=== PATIENT | male | born 1965 | race Caucasian/White ===

== ENCOUNTER 2019-02-05 07:56 | Outpatient (RCR) | payer OTHER, SELFPAY ==
[2019-02-05 08:01] VITALS: BMI 35.0
== END 2019-05-06 23:59 | disposition home or self-care (01) ==
LOC: ANHDMC 07:56
PROVIDERS: PCP Internal Medicine; Visit Provider Internal Medicine
DX: E11.9 Type 2 diabetes mellitus without complications (principal); Z71.3 Dietary counseling and surveillance
CPT/HCPCS: 97803

== ENCOUNTER 2022-05-30 00:19 | Day surgery (SDC) | payer OTHER, SELFPAY ==
[2022-05-13 14:01] VITALS: BMI 35.4
[2022-05-30 06:40] VITALS: BP 134/79; PULSE 79; RESP 18; TEMP 36.4; O2SAT 100; BMI 34.9
[2022-05-30] MEDS: LACTATED RINGERS 1,000 ML 150 ML IV CONT (07:03)
[2022-05-30 07:05] LABS: Glucose Point of Care 107 mg/dl (65-105)
--- NOTE | 2022-05-30 07:28 | PM.HPGS ---
History of Present Illness History of Present Illness Consent: Risks, benefits, and alternatives have been discussed and questions answered. Patient agrees to proceed with procedure. Chief complaint: neoplasm screening Narrative: Tio Mendez is a 56 year old male Presents for screening colonoscopy. Patient's current weight appetite and bowel movements are normal. Patient denies abdominal pain. He has had no bleeding. Family history is significant for an uncle who had colon cancer. Patient reports no first-degree relatives have polyps or cancer. Patient presents today for screening colonoscopy. Review of Systems Review of Systems: Review of systems noncontributory. [facility] Social History Social History (System 07/02/19 @ 08:55 by Lorna Yun) Living arrangements: with family Spiritual care concerns: No Meds Home Medications and Allergies Home Medications Medication Instructions Recorded Confirmed Type aspirin 81 mg capsule 81 mg PO DAILY 05/13/22 05/30/22 History felodipine 10 mg tablet,extended 10 mg PO DAILY 05/13/22 05/30/22 History release 24 hr rosuvastatin 20 mg tablet 20 mg PO DAILY 05/13/22 05/30/22 History semaglutide 14 mg tablet (Rybelsus) 14 mg PO DAILY 05/13/22 05/30/22 History telmisartan 80 1 tablet PO DAILY 05/13/22 05/30/22 History mg-hydrochlorothiazide 25 mg tablet Allergies Allergy/AdvReac Type Severity Reaction Status Date / Time No Known Allergies Allergy Verified 05/30/22 06:50 Vital Signs Vital Signs - 24 hr 05/30/22 06:40 Temperature 97.6 F Pulse Rate 79 Respiratory Rate 18 Blood Pressure 134/79 Pulse Oximetry 100 Oxygen Delivery Room Air Exam Narrative: Physical exam reveals patient to be alert. Vital signs stable. HEENT exam is unremarkable. Patient is anicteric. Lungs are clear to auscultation and percussion. Heart is without murmur or extra sounds. Abdomen bowel sounds are present soft nontender with no organomegaly. Digital external rectal exam is normal. Assessment and Plan Assessment and plan (1) Encounter for screening colonoscopy: Code(s): Z12.11 - Encounter for screening for malignant neoplasm of colon Status: Acute Assessment and Plan: Patient presents today for screening colonoscopy. Further recommendations may be given after endoscopy.
--- NOTE | 2022-05-30 07:31 | P.PNAN_ITS ---
Anes - Initial Pre Proc Eval Procedure: Operation Date: 05/30/22 08:00 Proposed Procedures p Screening Colonoscopy - Beni Nevarez MD Date/Time: 05/30/22 07:31 Surgeon: Beni Nevarez MD Pre Op Diagnosis: neoplasm screening Patient Data Age: 56 Gender: M Height: 1.75 m Weight: 107.4 kg Last Vital Signs Temp 97.6 F 05/30/22 06:40 Pulse 79 05/30/22 06:40 Resp 18 05/30/22 06:40 BP 134/79 05/30/22 06:40 Pulse Ox 100 05/30/22 06:40 O2 Del Method Room Air 05/30/22 06:40 Allergies Allergy/AdvReac Type Severity Reaction Status Date / Time No Known Allergies Allergy Verified 05/30/22 06:50 Home Medications Medication Instructions Recorded Confirmed Type aspirin 81 mg capsule 81 mg PO DAILY 05/13/22 05/30/22 History felodipine 10 mg tablet,extended 10 mg PO DAILY 05/13/22 05/30/22 History release 24 hr rosuvastatin 20 mg tablet 20 mg PO DAILY 05/13/22 05/30/22 History semaglutide 14 mg tablet (Rybelsus) 14 mg PO DAILY 05/13/22 05/30/22 History telmisartan 80 1 tablet PO DAILY 05/13/22 05/30/22 History mg-hydrochlorothiazide 25 mg tablet Laboratory Tests 05/30/22 06:57 POC Capillary Glucose 107 mg/dl H mg/dl (65-105) Patient hx anesthesia problems: none Family hx anesthesia problems: none Results Review: All pre-operative results and documents have been reviewed as part of the pre- operative evaluation. [facility] Social History Social History (System 07/02/19 @ 08:55 by Lorna Yun) Living arrangements: with family Spiritual care concerns: No Anes - Eval Final PreProcedure Day of Procedure 05/30/22 07:31 Patient weight: obese Heart: regular rate and rhythm Lungs: clear to auscultation Airway: Mallampati scale class II Neurological: alert and oriented Last oral intake: >/= 8 hours ASA classification: III Emergent: no Anesthetic plan: proceed Anesthesia type and monitoring: general GIVS and standard monitoring Results Review: All pre-operative results and documents have been reviewed as part of the pre- operative evaluation. Informed Consent: The patient's anesthetic plan and its attendant risks and benefits were discusse d with the patient/family/POA. Questions were solicited and answers provided to the satisfaction of the patient/family/POA.
[2022-05-30] MEDS: SIMETHICONE ORAL SUSPENSION 20 MG/0.3 ML 30 ML BOTTLE 0.6 ML IRRIGATION (08:08)
[2022-05-30 08:17] VITALS: BP 94/62; PULSE 74; RESP 20; O2SAT 96
[2022-05-30 08:27] VITALS: BP 92/63; PULSE 72; RESP 20; O2SAT 97
[2022-05-30 08:37] VITALS: BP 109/74; PULSE 70; RESP 22; O2SAT 98
== END 2022-05-30 08:43 | disposition home or self-care (01) ==
PROVIDERS: PCP Internal Medicine; Visit Provider Internal Medicine Gastroenterology
PROC: 0DJD8ZZ Inspection of Lower Intestinal Tract, Via Natural or Artificial Opening Endoscopic (ICD-10-PCS; CPT 45378; principal; 2022-05-30 08:00)
DX: Z12.11 Encounter for screening for malignant neoplasm of colon (principal); Z79.82 Long term (current) use of aspirin; E66.9 Obesity, unspecified; Z68.35 Body mass index [BMI] 35.0-35.9, adult
CPT/HCPCS: 45378; 82948; J2704; J7120

== ENCOUNTER 2024-03-13 09:26 | Emergency (ER) | payer BC, SELFPAY ==
--- NOTE | ~2024-03-13 | XR_ITS ---
EXAMINATION: XR chest 1V portable DATE: 03/13/2024 09:52 INDICATION: Chest pain. TECHNIQUE: A single frontal view of the chest was obtained. COMPARISON: None. FINDINGS: There is no pneumonia, pleural effusion, or pneumothorax. The heart size is normal. IMPRESSION: 1. No acute cardiopulmonary disease. Reviewed, dictated and finalized at location B. TED PHYSICAL EDUCATION AIDE
[2024-03-13 09:26] VITALS: PULSE 84
[2024-03-13 09:28] VITALS: BP 164/117; PULSE 86; RESP 20; TEMP 36.6; O2SAT 100
--- NOTE | 2024-03-13 09:35 | ED.CHESTPAIN ---
HPI - Chest Pain General Chief Complaint: Chest Pain Stated Complaint: chest pain Time Seen by Provider: 03/13/24 09:33 Source: patient and family Mode of arrival: ambulatory Limitations: no limitations History of Present Illness HPI narrative: 58-year-old male with a history of Anxiety,hypertension, prediabetes, dyslipidemia presents to the ED with a 7 hour history of -- anterior chest pain/ upper substernal chest pain which woke him up from his sleep. The pain was noted to be 2/10. The pain radiated to his right arm. He had nausea with vomiting. No shortness of breath or lightheadedness. Currently the pain is noted to be 1/10. No prior history of CAD. No prior stress test or cardiac catheterization. Two weeks ago yet a history of dizziness which lasted for a day with spontaneous resolution. MD complaint: chest pain Onset (ago): hour(s) ( 7 hours ago) Timing of current episode: constant Prior episodes: No Onset: during rest and awoke with symptoms Pain location: substernal Pain radiation: right arm Severity: mild Pain scale (0-10): 1 Quality: aching Relieving factors: nothing Exacerbating factors: nothing Associated symptoms: nausea and vomiting Treatment prior to arrival: none Risk Factors Coronary artery disease risk factors: hyperlipidemia and hypertension Thoracic aortic dissection risk factors: none Related Data Home Medications ?Medication ?Instructions ?Recorded ?Confirmed ?Last Taken ?Type aspirin 81 mg capsule 81 mg PO DAILY 05/13/22 05/30/22 03/13/24 History felodipine 10 mg tablet,extended 10 mg PO DAILY 05/13/22 05/30/22 Unknown History release 24 hr rosuvastatin 20 mg tablet 20 mg PO DAILY 05/13/22 05/30/22 Unknown History telmisartan 80 1 tablet PO DAILY 05/13/22 05/30/22 Unknown History mg-hydrochlorothiazide 25 mg tablet Allergies Allergy/AdvReac Type Severity Reaction Status Date / Time No Known Allergies Allergy Verified 03/13/24 09:31 Review of Systems Review of Systems: All systems reviewed & are unremarkable except as noted in HPI and below Constitutional: Constitutional: Reports as per HPI and Reports no additional constitutional complaints Eyes: Eyes: Reports as per HPI and Reports no additional eye complaints ENT: Reports system reviewed and no additional complaints, except as documented and Reports as per HPI Cardiovascular: Cardiovascular: Reports as per HPI and Reports chest pain Respiratory: Respiratory: Reports as per HPI and Reports no additional respiratory complaints Gastrointestinal: Gastrointestinal: Reports as per HPI and Reports no additional gastrointestinal complaints Genitourinary: Genitourinary: Reports no additional male genitourinary complaints and Reports as per HPI Musculoskeletal: Musculoskeletal: Reports no additional musculoskeletal complaints and Reports as per HPI Integumentary/Breasts: Skin/Breast: Reports system reviewed and no additional complaints, except as docu and Reports as per HPI Neurologic: Reports system reviewed and no additional complaints, except as documented and Reports as per HPI Psychiatric: Psychiatric: Reports no additional psychiatric complaints and Reports as per HPI Endocrine: Endocrine: Reports no additional endocrine complaints and Reports as per HPI Hematologic/Lymphatic: Hematologic/Lymphatic: Reports no additional hematologic/lymphatic complaints and Reports as per HPI Allergic/Immunologic: Allergic/Immunologic: Reports no additional allergic/immunologic complaints and Reports as per HPI PMFSH Past Medical History Medical History Anxiety Pre-diabetes Dyslipidemia Hypertension Social History Social History Living arrangements: with family Spiritual care concerns: No Exam Narrative: blood pressure 164/117 heart rate of 84 Const: General: no acute distress Nutritional Appearance: well nourished Orientation/consciousness: patient oriented x3 Limitations: no limitations HENMT: Head: normal to inspection Ears: external ears normal Face/Nose/Sinus: Normal external nose present Face and sinus: normal facial exam Mouth: Yes Normal oral and palatal mucosa present Throat: posterior oropharynx normal Eyes: Conjunctivae: conjunctivae normal Pupils: Equal, round and reactive pupils present EOM: EOMs intact bilaterally Direct Ophthalmoscopy: no photophobia Neck: Neck: normal visual inspection, no lymphadenopathy and no meningeal signs Chest: Chest palpation & inspection: normal inspection of the chest Resp: Effort & Inspection: normal respiratory effort Auscultation: clear to auscultation bilaterally Cardio: Rate: regular rate Rhythm: regular rhythm GI: Auscultation: normal bowel sounds Other: no tenderness/rigidity / rebound. : General: Yes no CVA tenderness Back/Spine/Pelvis: Back: no CVA tenderness Skin: General skin exam: normal color Rashes: no rashes Wounds: no wounds Neuro: General: patient oriented x3, moves all extremities, no meningeal signs, no focal motor deficits and CN's II-XI intact bilaterally Cranial nerves: Yes Nystagmus not present Speech: normal speech Extrem: General: normal to inspection and no clubbing, cyanosis or edema Psych: Mental Status: mental status grossly normal Affect: normal affect Attitude: cooperative Course Course Emergency Course: Anterior chest pain- EKG suggestive of inferolateral STEMI patient received aspirin, heparin and 25 mg of metoprolol p.o.. Discussed with wheel alignment mechanic who will give the 2nd antiplatelet when he gets to [facility] Vital Signs Vital signs: Vital Signs Pulse Rate 84 03/13/24 09:26 Oxygen Delivery Room Air 03/13/24 09:26 Temperature 36.6 C 03/13/24 09:28 Pulse Rate 90 03/13/24 09:53 Respiratory Rate 20 03/13/24 09:28 Blood Pressure 164/117 H 03/13/24 09:28 Pulse Oximetry 100 03/13/24 09:28 Oxygen Delivery Room Air 03/13/24 09:28 MDM - Chest Pain MDM Narrative Medical decision making narrative: inferolateral STEMI Lab Data 03/13/24 09:42 03/13/24 09:42 Labs: Lab Results 03/13/24 Range/Units 09:42 WBC 9.3 (4.8-10.8) K/mm3 RBC 6.03 (4.70-6.10) M/mm3 Hgb 17.2 (14.0-18.0) g/dL Hct 50.3 (40.0-54.0) % MCV 83.4 (78.0-102.0) fL MCH 28.5 (27.0-31.0) pg MCHC 34.2 (32-36) g/dL RDW 11.9 (11.6-14.4) % Plt Count 188 (150-420) K/mm3 MPV 10.4 (8.7-11.0) fl Immature Gran % (Auto) 0.3 H (0.0-0.0) % Neut % (Auto) 86.3 H (50.0-70.0) % Lymph % (Auto) 10.0 L (18.0-42.0) % [place] % (Auto) 2.9 (2.0-11.0) % Eos % (Auto) 0.2 L (1.0-6.0) % Baso % (Auto) 0.3 (0.0-1.0) % Lymph # (Auto) 0.93 L (1.10-4.50) K/mm3 [place] # (Auto) 0.27 (0.10-0.90) K/mm3 Eos # (Auto) 0.02 (0.02-0.50) K/mm3 Baso # (Auto) 0.03 (0.00-0.10) K/mm3 Abs Immat Gran (auto) 0.03 H (0.00-0.00) K/mm3 Absolute Neuts (auto) 7.99 H (1.70-7.20) K/mm3 Absolute Nucleated RBC 0.00 (0.00-0.00) K/mm3 Nucleated RBC % 0.0 (0-0.0) % PT Pending INR Pending APTT Pending Sodium Pending Potassium Pending Chloride Pending Carbon Dioxide Pending Anion Gap Pending BUN Pending Creatinine Pending Estim Creat Clear Calc Pending Estimated GFR Pending Glucose Pending Calculated Osmolality Pending Lactic Acid Pending Calcium Pending Total Bilirubin Pending AST Pending ALT Pending Alkaline Phosphatase Pending Troponin I Pending NT-Pro-B Natriuret Pep Pending Total Protein Pending Albumin Pending Critical Care Time Critical Care Time Critical Care Time: Yes Total Critical Care Time: 35 Discharge Plan Discharge Clinical Impression: Acute ST elevation myocardial infarction (STEMI) of inferior wall Patient Disposition: Still a Patient Condition: Stable Patient Language: British Prescriptions: No Action felodipine 10 mg Tablet Extended Release 24 Hr 10 mg PO DAILY rosuvastatin 20 mg Tablet 20 mg PO DAILY telmisartan-hydrochlorothiazid 80-25 mg tablet 1 tablet PO DAILY aspirin 81 mg Capsule 81 mg PO DAILY Follow-up/Referrals: Ben Law MD [Primary Care Provider] - Time of Disposition: 09:57
--- NOTE | 2024-03-13 09:36 | ECG_ITS ---
Test Date: 2024-03-13 09:38:15 Measurements Intervals [place] Rate: 78 P: 42 IA: 159 QRS: 66 QRSD: 100 T: 60 QT: 386 QTc: 442 Interpretive Statements SINUS RHYTHM INFERIOR MYOCARDIAL INFARCTION , POSSIBLY ACUTE [40+ ms Q WAVE AND/OR ST/T ABNORMALITY IN II/aVF] ACUTE [place] No previous ECG available for comparison Electronically Signed On 03-14-2024 12:34:31 BEDSPREAD INSPECTOR by Val Sparks M.D.
[2024-03-13 09:40] VITALS: BP 179/113; PULSE 84; RESP 20; O2SAT 99
[2024-03-13 09:51] LABS: Basophils Absolute Auto 0.03 K/mm3 (0.00-0.10); Basophils Percent Auto 0.3 % (0.0-1.0); Eosinophils Absolute Auto 0.02 K/mm3 (0.02-0.50); Eosinophils Percent Auto 0.2 % (1.0-6.0); Hematocrit 50.3 % (40.0-54.0); Hemoglobin 17.2 g/dL (14.0-18.0); Immature Granulocyte Absolute 0.03 K/mm3 (0.00-0.00); Immature Granulocyte Percent A 0.3 % (0.0-0.0); Lymphocytes Absolute Auto 0.93 K/mm3 (1.10-4.50); Mean Corpuscular HGB Conc 34.2 g/dL (32-36); Mean Corpuscular Hemoglobin 28.5 pg (27.0-31.0); Mean Corpuscular Volume 83.4 fL (78.0-102.0); Mean Platelet Volume 10.4 fl (8.7-11.0); Monocytes Absolute Auto 0.27 K/mm3 (0.10-0.90); Monocytes Percent Auto 2.9 % (2.0-11.0); Neutrophils Absolute Auto 7.99 K/mm3 (1.70-7.20); Neutrophils Percent Auto 86.3 % (50.0-70.0); Platelet Count Result 188 K/mm3 (150-420); Red Blood Count 6.03 M/mm3 (4.70-6.10); Red Cell Distribution Width 11.9 % (11.6-14.4); White Blood Count 9.3 K/mm3 (4.8-10.8)
[2024-03-13] MEDS: ASPIRIN 81 MG CHEWABLE TABLET 324 MG PO (09:52)
[2024-03-13 09:53] VITALS: PULSE 90
[2024-03-13] MEDS: METOPROLOL TARTRATE 25 MG TABLET PO (09:53)
[2024-03-13] MEDS: HEPARIN SOD/D5W 100 UNITS/ML 25,000 UNITS/250 ML BAG 13.58 UNITS IV CONT (09:54)
[2024-03-13 10:00] VITALS: BP 167/105; PULSE 87; RESP 20; O2SAT 99
[2024-03-13 10:04] LABS: INR 0.9; Partial Thromboplastin Time 24.8 Sec (23.9-30.70); Prothrombin Time 10.3 Seconds (9.50-12.1)
[2024-03-13 10:08] LABS: Lactic Acid Reflex 2.7 mmol/L (0.4-2.0)
[2024-03-13] MEDS: HEPARIN SODIUM 5,000 UNITS/ML VIAL 5000 UNITS IV PUSH (10:10)
[2024-03-13 10:13] LABS: Alanine Aminotransferase 44 U/L (16-63); Albumin Level 4.4 g/dL (3.4-5.0); Alkaline Phosphatase 67 U/L (46-116); Anion Gap 11 mmol/L (4-12); Aspartate Amino Transferase 20 U/L (15-37); Bilirubin,Total 0.8 mg/dL (0.00-1.00); Blood Urea Nitrogen 14 mg/dL (7-18); Calcium 9.4 mg/dL (8.5-10.1); Carbon Dioxide 29 mmol/L (21-32); Chloride 99 mmol/L (98-108); Estimated CRCL calculation 81 ml/min; Estimated Glomerular Filt Rate > 60; Glucose 195 mg/dL (70-99); NT Pro B Type Natriuretic Pept 144 pg/mL (0-125); Osmolality Calculated 293 mOsm/kg (285-295); Potassium 3.8 mmol/L (3.5-5.1); Sodium 139 mmol/L (136-145); Total Protein 7.8 g/dL (6.4-8.2)
[2024-03-13 10:15] LABS: Troponin I 886.2 ng/L (0.00-60.4)
[2024-03-13 12:47] LABS: Reflex Lactic Acid Yes or No Add Lactic
--- OUTSIDE RECORDS SUMMARY | 2024-03-14 22:26 | XMS_ITS | Clinical Summary ---
Author Organization [facility] Address [address] [place] [address]. [place], [place] [id number] [place] [id number] Care Team Providers Care Model Technician Name Role Phone None, Provider MD Primary Care Provider Unavaila ble Allergies No known active allergies Medications lisinopril-hydro chlorothiazide 20-25 MG tablet Take 1 tablet by mouth daily. 30 tablet 09/08/2018 Active Family History Medical History Relation Comments Heart Disease Father Hypertension Mother Relation Status Comments Father Mother Social History Tobacco Use Types Packs/Day Years Used Date Smoking Tobacco: Never Smokeless Tobacco: Never Alcohol Use Standard Drinks/Week Comments Yes 3.3 (1 standard drin k = 0.6 oz pure alcohol) drinks a couple times a month Sex and Gender Information Value Date Recorded Sex Assigned at Not on file Legal Sex Male 12:02 PM CDT Gender Identity Not on file Sexual Orientation Not on file Last Filed Vital Signs Vital Sign Reading Time Taken Comments Blood Pressure 222/126 09/08/2018 2:02 PM CDT Pulse 82 09/08/2018 2:02 PM CDT Temperature 36.2 ??C (97.2 ??F) 09/08/2018 12:03 PM C DT Respiratory Rate 20 09/08/2018 2:02 PM CDT Oxygen Saturation 99% 09/08/2018 2:02 PM CDT Inhaled Oxygen Concentration - - Weight 117.9 kg (260 lb) 09/08/2018 12:03 PM CDT Height 175.3 cm (5' 9 ) 09/08/2018 12:03 PM CDT Body Mass Index 38.4 09/08/2018 12:03 PM CDT Plan of Treatment Health Maintenance Due Date Last Done Comments Colorectal Cancer Screening Colonoscopy (10 Years) 1967 Annual Physical 08/13/1970 Hepatitis C 08/13/1985 DTaP, Tdap and Td Vaccines ( 1 - Tdap) 08/13/1986 Hepatitis B Vaccines (1 of 3 - 19+ 3-dose series) 08/13/1986 Zoster Vaccines (1 of 2) 08/13/2017 COVID-19 Vaccine (1 - 2023-2 5 season) 2023 Influenza Adult (#1) 2023 Meningococcal Vaccine Aged Out No carina brandan eligible based on patient's age to complete this topic Pneumococcal Vaccine: Pediat rics (0 to 5 Years) and At-Risk Patients (6 to 64 Years) Aged Out No longer eligible b ased on patient's age to complete this topic RSV Immunizations Under 20 Months Aged Out No longer eligible based on patient's age to complete this topic Insurance Care Teams Model Technician Relationship Specialty Start Date End Date None, Provider, PCP - General 09/08/18
--- OUTSIDE RECORDS SUMMARY | 2024-03-14 22:47 | XMS_ITS | Clinical Summary ---
Author Organization [facility] Address [address] [place] [address]. [place], [place] [id number] [place] [id number] Care Team Providers Care Paint Laboratory Technician Name Role Phone None, Provider MD [...] to complete this topic Insurance Care Teams Paint Laboratory Technician Relationship Specialty Start Date End Date None, Provider, PCP - General 09/08/18
== END 2024-03-13 10:13 | disposition short-term general hospital (02) ==
PROVIDERS: Emergency Provider Internal Medicine Critical Care Medicine; PCP Internal Medicine
DX: I21.19 ST elevation (STEMI) myocardial infarction involving other coronary artery of inferior wall (principal); I10 Essential (primary) hypertension
CPT/HCPCS: 36415; 71045; 80053; 83605; 83880; 84484; 85025; 85610; 85730; 93005; 96365; 99291; A9270; J1644

== ENCOUNTER 2024-03-13 10:23 | Inpatient (IN) | payer BC, SELFPAY ==
[2024-03-13] VITALS (10 sets, daily range): BP systolic 133–155; BP diastolic 89–99; PULSE 59–67; RESP 12–16; TEMP 36.5–36.9; O2SAT 98–99; BMI 36.4
[2024-03-13 11:55] LABS: Activated Clotting Time 107 SEC (74-137)
--- NOTE | 2024-03-13 12:17 | P.CONCA_ITS ---
Assessment and Plan Assessment and plan (1) Acute ST elevation myocardial infarction (STEMI) of inferior wall: Code(s): I21.19 - ST elevation (STEMI) myocardial infarction involving other coronary artery of inferior wall Status: Acute (2) Hypertension: Code(s): I10 - Essential (primary) hypertension Status: Acute Plan Inferior STEMI Hypertension Hyperlipidemia Prediabetes Family history of significant CAD Plan: Continue aspirin 81 mg daily Continue statin Start metoprolol 25 mg b.i.d. Hold telmisartan, hydrochlorothiazide for now Continue felodipine Transfer current for CT surgery consult and CABG History of Present Illness History of Present Illness Consult date/time: 03/13/24 12:17 Reason For Visit: chest pain Narrative: 58-year-old male with medical history of hypertension, hyperlipidemia, prediabetes, family history of CAD was transferred from an outside hospital for inferior STEMI. He presented to the outside hospital with chest pain that started at 2:30 a.m. in the morning. This was associated with nausea and 1 emesis. The pain was of intensity 2 x 10 and located in his mid chest without any radiation. Given his family history of significant CAD, patient presented to an outside hospital ER. Chest pain was off and on and was resolved in the outside hospital ER after administration of aspirin and heparin. Troponin was elevated. EKG there showed ST elevation in inferior leads. Patient was transferred to [facility] for emergent cardiac catheterization. Patient had cardiac catheterization which showed significant triple-vessel disease including 90% stenosis of distal RCA, LETTER OF CREDIT DOCUMENT EXAMINER of RPDA with [id number] collateral, 60% stenosis of proximal LAD, 90% stenosis of mid LAD, diffusely diseased mid to distal LAD, 50% stenosis of proximal left circumflex, 70% stenosis of OM (see cath report for full details of cardiac catheterization). Given patient did not have ongoing chest pain, stable blood pressure, electrically stable decision was made to transfer him for CABG. No chest pain, shortness of breath, dizziness, lightheadedness, palpitations, leg swelling, recent weight gain, nausea, emesis, headache. Review of Systems Review of Systems: A complete review of systems was performed and negative other than those mentioned in [facility] Past Medical History Medical History Anxiety Pre-diabetes Dyslipidemia Hypertension Social History Social History Living arrangements: with family Spiritual care concerns: No Meds Home Medications and Allergies Home Medications ?Medication ?Instructions ?Recorded ?Confirmed ?Type aspirin 81 mg capsule 81 mg PO DAILY 05/13/22 05/30/22 History felodipine 10 mg tablet,extended 10 mg PO DAILY 05/13/22 05/30/22 History release 24 hr rosuvastatin 20 mg tablet 20 mg PO DAILY 05/13/22 05/30/22 History telmisartan 80 1 tablet PO DAILY 05/13/22 05/30/22 History mg-hydrochlorothiazide 25 mg tablet Allergies Allergy/AdvReac Type Severity Reaction Status Date / Time No Known Allergies Allergy Verified 03/13/24 09:31 Exam Narrative: General: Alert oriented x3, no acute distress Neck: Supple, JVD + Chest: Bilaterally clear to auscultation, no rales or rhonchi Cardiac: S1, S2 +, regular rate, regular rhythm, no murmurs or rubs Extremities: No pedal edema, no skin rash Neurologic: Alert and oriented x3, no focal neurological deficits
--- NOTE | 2024-03-13 12:26 | PC.NURSE ---
This patient, Tio Mendez, was admitted to [facility] ICU-1. Patient/family oriented to hospital policies and general routines including ID bracelet, bed and alarms, visiting hours, pain management, procedures, bathroom and other care routines, personal items, smoking policy, room service/diet, and visiting hours. Information on how to activate the Rapid Response Team has been discussed. Patient/Family are encouraged to report perceived risks to care and to ask questions if they do not understand what they are told or what they should do.
--- NOTE | 2024-03-13 12:30 | P.CONIN_ITS ---
Assessment and Plan Assessment and plan (1) Acute ST elevation myocardial infarction (STEMI) of inferior wall: Code(s): I21.19 - ST elevation (STEMI) myocardial infarction involving other coronary artery of inferior wall Status: Acute Assessment and Plan: Transferred from [facility] with EKG findings suggestive of STEMI in the patient with all the risk factors and chest pain. At [place] Patient had cardiac catheterization which showed significant triple-vessel disease including 90% stenosis of distal RCA, PRODUCT MERCHANDISER of RPDA with [id number] collateral, 60% stenosis of proximal LAD, 90% stenosis of mid LAD, diffusely diseased mid to distal LAD, 50% stenosis of proximal left circumflex, 70% stenosis of OM (see cath report for full details of cardiac catheterization). Patient is now going to be transferred to [facility] for CABG Currently he is chest pain-free and hemodynamically stable Continue hemodynamic monitoring in ICU telemetry monitoring Aspirin statin beta-mary Patient was started on heparin drip as per Cardiology orders (2) Hypertension: Code(s): I10 - Essential (primary) hypertension Status: Acute Assessment and Plan: Blood pressure is in control at this time. Holding telmisartan and hydrochlorothiazide at this time. Continue felodipine head and start metoprolol (3) Dyslipidemia: Code(s): E78.5 - Hyperlipidemia, unspecified Status: Acute Assessment and Plan: Continue rosuvastatin (4) Pre-diabetes: Code(s): R73.03 - Prediabetes Status: Acute Assessment and Plan: Sliding scale insulin, check HbA1c Plan DVT prophylaxis -patient will be on heparin infusion Nutrition -diet ordered Code Status - Full Code Maintenance Technician 3Rd Shift Consult Note Consult date: 03/13/24 Reason for consult: STEMI HPI: Tio Mendez is a 58 year old male with past medical history of prediabetes but not on any treatment, hypertension and hyperlipidemia presented to ED [place] [facility] with chief complaint of chest pain. Chest pain started around 2:00 a.m. while he was sleeping. Pain was dull in quality he rated at 1-2 L out of 10 and radiated to his right arm. He had nausea and had 1-2 episodes of vomiting with no blood in it. No shortness of breath or diaphoresis. His pain persisted and did not get better hence his forced him to come to the hospital. He has not had similar chest pain in the past. He states he can walk many miles without any difficulty. Prior to this episode he was feeling good with no other complaints. All other systems were reviewed and were negative EKG today ER suggestive STEMI and patient was transferred to [facility] for evaluation patient underwent cardiac catheterization which showed multivessel coronary disease. His chest pain had resolved and he was hemodynamically stable. No intervention was performed and patient is being admitted to ICU. Patient will be transferred to [facility] for evaluation for CABG. Most recent blood pressure is 130/91 heart rate is 63 sinus rhythm saturation 97% on room air Review of Systems Review of Systems: All systems reviewed & are unremarkable except as noted in HPI and below (HPI) [facility] Past Medical History Medical History (Updated 03/13/24 @ 12:39 by Jonathan Barrera MD) Anxiety Pre-diabetes Dyslipidemia Hypertension Social History Social History Smoking status: Never smoker Alcohol intake: never Substance use type: does not use Do You Feel Safe in your Home?: Yes Lack of Transportation: No Lack of Food: Never True Current Housing: I Have Housing Concerned About Future Housing: No Difficulty Paying Gas/Electric Bills: No Difficulty Paying for Meds: No Currently Unemployed: No Education: Decline to Answer Difficulty w/ Childcare or Family Care: No Living arrangements: with family Spiritual care concerns: No Meds Home Medications and Allergies Home Medications ?Medication ?Instructions ?Recorded ?Confirmed ?Type aspirin 81 mg capsule 81 mg PO DAILY 05/13/22 03/13/24 History felodipine 10 mg tablet,extended 10 mg PO DAILY 05/13/22 03/13/24 History release 24 hr rosuvastatin 20 mg tablet 20 mg PO DAILY 05/13/22 03/13/24 History telmisartan 80 1 tablet PO DAILY 05/13/22 03/13/24 History mg-hydrochlorothiazide 25 mg tablet Allergies Allergy/AdvReac Type Severity Reaction Status Date / Time No Known Allergies Allergy Verified 03/13/24 09:31 Exam Narrative: General: Pt is alert awake and in NAD Lungs/Chest: Trachea central Clear BS B/L, No crackles or wheezing. Cardiac: RRR. Normal S1 S2. No murmurs Circulation: Bilateral dorsalis pedis Pedal pulses are intact and symmetrical. Abdomen: Normal bowel sounds.. Soft. NT. ND. Extremities: No clubbing, cyanosis or edema. Warm TR band on right wrist right hand shows good cap refill with no tenderness : Ibanez in place Neurologic: Follows commands. Moves all 4 extremities PERRL Skin: No Rash Quality VTE Prophylaxis VTE prophylaxis: pharmacologic ordered Hospitalist [facility] Advance Care Plan I have confirmed that the patient's Advanced Care Plan is present, code status is documented, or surrogate decision maker is listed in patient medical record.: Yes Medication Reconciliation I have utilized all available resources to obtain, update and review the patients current medications (includes all prescriptions, OTC, herbals, cannabis, and nutritional supplements).: Yes
[2024-03-13] MEDS: SODIUM CHLORIDE 0.9% IV 1,000 ML 125 ML IV CONT (12:39)
--- NOTE | 2024-03-13 12:48 | WPDCARDPROC ---
Cardiac Cath Procedure Note Date of procedure:: 03/13/24 Performing physician:: Jessica Castillo MD Indication:: Inferior STEMI Brief clinical history:: 58-year-old male with medical history of hypertension, hyperlipidemia, prediabetes presented with chest pain that started at 2:30 a.m. for which he presented to an outside hospital ER at EKG there showed inferior ST elevation with an elevated troponin. Patient was transferred to [facility] for emergent cardiac catheterization. Procedure Procedure performed:: Left heart catheterization Sedation/Medication given:: 1.5 mg Versed 150 mcg fentanyl Sedation start time 12:47 p.m. Sedation end time 13:21 Access site:: Right radial artery The right common femoral artery Estimated blood loss:: 10 mL Procedure note:: Patient was brought to the cardiac director of cardiac cath lab for angiogram and possible intervention. The risks, benefits, alternatives, and possible complications of this procedure was discussed, understood and accepted by the patient. Moderate sedation: I administered moderate sedation throughout the procedure. An independent trained provider pushed medications at my direction and monitored the patient's level of consciousness and physiological status throughout under my supervision. [id number] time was provided for the entire procedure. Please refer to electronic medical record for total sedation doses provided. Intra-service time: 34 minutes. Procedures performed 1. Radial artery access, right common femoral artery access 2. Left heart catheterization 3. Selective left and right coronary angiogram Hemodynamic data: Opening aortic pressure: 140/90 Closing aortic pressure: 138/80 LVEDP 9 mm Procedure technique: After informed consent was obtained, the patient was brought to the cardiac director of cardiac cath lab and was placed in the supine position. Access site was prepped and draped in usual sterile manner. Right radial access was obtained using modified Seldinger technique. Six Ecuadorean sheath was inserted. Radial cocktail was administered. We started 1st with coronary angiography. Selective left coronary angiography was performed in a standard fashion using diagnostic JL 3.5 catheter. Later a JR4 guide catheter was used to engage the right coronary artery but due to horizontal orientation of the aorta the RCA could not be engaged from the radial access. After multiple attempts at radial access was abandoned and decision was made to proceed to right common femoral artery access. The skin was infiltrated with 1% lidocaine for local anesthesia. After confirming the location of the inferior border of the femoral head using fluoroscopy, arterial access was obtained using modified Seldinger technique with a micropuncture needle under direct ultrasound guidance. Angiography through the micropuncture sheath confirmed adequate level of access that was also suitable for closure if warranted. The micropuncture sheath was then exchanged for a 6 Ecuadorean sheath which was inserted into the right common femoral artery. Selective coronary angiography was performed using JR4 guide catheter to engage the right coronary artery. The JR4 guide catheter was used to cross the aortic valve over a J-wire and obtain LVEDP and pullback pressures. The guide catheter was then removed from the body. Right common femoral artery access site was closed using 6 Ecuadorean Angio-Seal. Radial artery access site was closed using TR band. Patient tolerated the procedure well without any complications. Catheters used for selective coronary angiograms: Six Ecuadorean JL 3.5 Six Ecuadorean JR4 guide Findings:: 1. The left main coronary artery arises from the left coronary cusp and divides into the left anterior descending and left circumflex. It is free of angiographic disease. 2. The left anterior descending artery arises from the left main and gives off multiple diagonals. The proximal LAD has 60-70% stenosis. The mid LAD has 290% serial stenosis. The distal LAD is diffusely diseased. The 2nd diagonal is large with 60% stenosis in its body. 3. The left circumflex artery arises from the left main and is a non dominant artery. The proximal left circumflex has 60% stenosis, mid left circumflex has 70% stenosis. There are 2 large OM branches. OM1 has 70% stenosis in its body and OM2 has 70% stenosis in its body. 4. RCA is a large vessel and dominant. Distal RCA has 90% stenosis. The RPDA is a VENTURE CAPITAL ANALYST with [id number] collaterals. There is 70% stenosis in the proximal portion of the RPLA. Conclusion:: Inferior STEMI status post emergent cardiac catheterization; catheterization showed severe obstructive triple-vessel CAD Assessment and Plan Assessment and plan (1) Acute ST elevation myocardial infarction (STEMI) of inferior wall: Code(s): I21.19 - ST elevation (STEMI) myocardial infarction involving other coronary artery of inferior wall Status: Acute (2) Hypertension: Code(s): I10 - Essential (primary) hypertension Status: Acute (3) Dyslipidemia: Code(s): E78.5 - Hyperlipidemia, unspecified Status: Acute Plan Inferior STEMI Hypertension Hyperlipidemia Prediabetes Family history of significant CAD Plan: Continue aspirin 81 mg daily Continue statin Start metoprolol 25 mg b.i.d. Hold telmisartan, hydrochlorothiazide for now Continue felodipine Transfer current for CT surgery consult and CABG
--- NOTE | 2024-03-13 13:10 | P.PCNCC_ITS ---
Cardiac Cath Procedure Note Date of procedure:: 03/13/24 Performing physician:: Jessica Castillo MD Indication:: Inferior STEMI Brief clinical history:: 58-year-old male with medical history of hypertension, hyperlipidemia, prediabetes presented with chest pain that started at 2:30 a.m. for which he presented to an outside hospital ER at EKG there showed inferior ST elevation with an elevated troponin. Patient was transferred to [facility] for emergent cardiac catheterization. Procedure Procedure performed:: Left heart catheterization Sedation/Medication given:: 1 mg Versed 200 mcg fentanyl Sedation start time 11:04am Sedation end time 11:48am Heparin 5000 units Access site:: Right radial artery The right common femoral artery Estimated blood loss:: 10 mL Procedure note:: Patient was brought to the cardiac bottle label inspector for angiogram and possible intervention. The risks, benefits, alternatives, and possible complications of this procedure was discussed, understood and accepted by the patient. Moderate sedation: I administered moderate sedation throughout the procedure. An independent trained provider pushed medications at my direction and monitored the patient's level of consciousness and physiological status throughout under my supervision. [id number]-[id number] time was provided for the entire procedure. Please refer to electronic medical record for total sedation doses provided. Intra-service time: 34 minutes. Procedures performed 1. Radial artery access, right common femoral artery access 2. Left heart catheterization 3. Selective left and right coronary angiogram Hemodynamic data: Opening aortic pressure: 140/90 Closing aortic pressure: 138/80 LVEDP 9 mm Procedure technique: After informed consent was obtained, the patient was brought to the cardiac bottle label inspector and was placed in the supine position. Access site was prepped and draped in usual sterile manner. Right radial access was obtained using modified Seldinger technique. Six Brazilian sheath was inserted. Radial cocktail was administered. We started 1st with coronary angiography. Selective left coronary angiography was performed in a standard fashion using diagnostic JL 3.5 catheter. Later a JR4 guide catheter was used to engage the right coronary artery but due to horizontal orientation of the aorta the RCA could not be engaged from the radial access. After multiple attempts at radial access was abandoned and decision was made to proceed to right common femoral artery access. The skin was infiltrated with 1% lidocaine for local anesthesia. After confirming the location of the inferior border of the femoral head using fluoroscopy, arterial access was obtained using modified Seldinger technique with a micropuncture needle under direct ultrasound guidance. Angiography through the micropuncture sheath confirmed adequate level of access that was also suitable for closure if warranted. The micropuncture sheath was then exchanged for a 6 Brazilian sheath which was inserted into the right common femoral artery. Selective coronary angiography was performed using JR4 guide catheter to engage the right coronary artery. The JR4 guide catheter was used to cross the aortic valve over a J-wire and obtain LVEDP and pullback pressures. The guide catheter was then removed from the body. Right common femoral artery access site was closed using 6 Brazilian Angio-Seal. Radial artery access site was closed using TR band. Patient tolerated the procedure well without any complications. Catheters used for selective coronary angiograms: Six Brazilian JL 3.5 Six Brazilian JR4 guide Findings:: 1. The left main coronary artery arises from the left coronary cusp and divides into the left anterior descending and left circumflex. It is free of angiographic disease. 2. The left anterior descending artery arises from the left main and gives off multiple diagonals. The proximal LAD has 60-70% stenosis. The mid LAD has 290% serial stenosis. The distal LAD is diffusely diseased. The 2nd diagonal is large with 60% stenosis in its body. 3. The left circumflex artery arises from the left main and is a non dominant artery. The proximal left circumflex has 60% stenosis, mid left circumflex has 70% stenosis. There are 2 large OM branches. OM1 has 70% stenosis in its body and OM2 has 70% stenosis in its body. 4. RCA is a large vessel and dominant. Distal RCA has 90% stenosis. The RPDA is a PACKING AND FINAL ASSEMBLY SUPERVISOR with cjhq-sm-wfoch collaterals. There is 70% stenosis in the proximal portion of the RPLA. Conclusion:: Inferior STEMI status post emergent cardiac catheterization; catheterization showed severe obstructive triple-vessel CAD
[2024-03-13 13:30] LABS: Hemoglobin A1C 6.7 % (<5.7)
[2024-03-13 13:52] LABS: MRSA (PCR) NOT DETECTED (NOT DETECTE)
[2024-03-13] MEDS: ROSUVASTATIN 20 MG TABLET PO (16:21)
--- NOTE | 2024-03-13 16:33 | PC.NURSE ---
Ambulance here to transport to [facility]. Report given. All questions answered.
--- NOTE | 2024-03-15 08:47 | PM.TDS ---
Transfer Discharge Sum: Prov Provider Date of admission: 03/13/24 10:23 Primary care physician: Ben Law MD Admitting clinician: Jessica Castillo MD Consults: 03/13/24 Consult to Physician Routine Comment: Consulting Provider: Jonathan Barrera Reason for consultation: ICU admission Has provider been notified: Yes Receiving physician/facility: Jessica Castillo DS: Admitting Diagnosis Discharge Date 03/13/24 Admitting Diagnosis Inferior STEMI DS: Discharge Diagnosis Discharge Diagnosis (1) NSTEMI (non-ST elevated myocardial infarction): Code(s): I21.4 - Non-ST elevation (NSTEMI) myocardial infarction Status: Acute Transfer Discharge Sum: Med Medications Active and Home Medications: Home Medications aspirin 81 mg capsule 81 mg PO DAILY 05/13/22 [History Confirmed 03/13/24] felodipine 10 mg tablet,extended release 24 hr 10 mg PO DAILY 05/13/22 [History Confirmed 03/13/24] rosuvastatin 20 mg tablet 20 mg PO DAILY 05/13/22 [History Confirmed 03/13/24] telmisartan 80 mg-hydrochlorothiazide 25 mg tablet 1 tablet PO DAILY 05/13/22 [History Confirmed 03/13/24] Transfer Discharge Sum: Hosp Hospital Course Hospital course: Tio Mendez is a 58 year old male with history of hypertension, dyslipidemia, prediabetes, anxiety, family history of coronary artery disease who presented with chest pain that started at 2 in the morning on the day of presentation. He went to an outside hospital where he had an EKG that showed inferior STEMI and as he was transferred to [facility] for emergent cardiac catheterization. Cardiac catheterization at [facility] showed obstructive triple-vessel CAD for which CABG was recommended. The culprit vessel was distal RCA with 90% stenosis. PCI was not performed given patient did not have chest pain, was hemodynamically and electrically stable, there was STEPHANI 3 flow beyond the lesion in distal RCA, and patient had obstructive triple-vessel disease which would benefit from CABG. Patient was agreeable with this plan and he was transferred to another facility for CT surgery consult and CABG. Patient tolerated the procedure well without any complications. He was on aspirin, statin, heparin drip. Second antiplatelet agent was not administered in lieu of CABG evaluation. Time Spent with Patient Time attestation: Total time spent providing and/or coordinating transfer services: More than 30 minute Exam Narrative: General: Alert oriented x3, no acute distress Neck: Supple, JVD + Chest: Bilaterally clear to auscultation, no rales or rhonchi Cardiac: S1, S2 +, regular rate, regular rhythm, no murmurs or rubs Extremities: No pedal edema, no skin rash Neurologic: Alert and oriented x3, no focal neurological deficits DS: Data Procedures/Treatments: Emergent cardiac catheterization showed obstructive triple-vessel disease with 90% stenosis distal RCA (culprit vessel), ACCOUNTANT ASSISTANT of RCA PDA with [id number] collaterals, 70% stenosis of RPLA, 70% stenosis of proximal LAD, 90% stenosis in mid LAD, diffusely diseased distal LAD, 60% stenosis in diagonal, 60% stenosis proximal left circumflex, 70% stenosis mid left circumflex, 70% stenosis in OM1 and OM2 vessels. Myocardial Infarction Most Recent Cardiac Tests: Chest X-Ray 03/13/24
== END 2024-03-13 16:30 | disposition short-term general hospital (02) | DRG 282 ==
PROVIDERS: Internal Medicine; Admitting Provider Internal Medicine Interventional Cardiology; PCP Internal Medicine; Visit Provider Internal Medicine Interventional Cardiology
PROC: 4A023N7 Measurement of Cardiac Sampling and Pressure, Left Heart, Percutaneous Approach (ICD-10-PCS; CPT 93452; principal; 2024-03-13 10:30)
PROC: 4A023N7 Measurement of Cardiac Sampling and Pressure, Left Heart, Percutaneous Approach (ICD-10-PCS; CPT 36140; 2024-03-13 10:30)
PROC: 4A023N7 Measurement of Cardiac Sampling and Pressure, Left Heart, Percutaneous Approach (ICD-10-PCS; 2024-03-13 10:30)
DX: I21.4 Non-ST elevation (NSTEMI) myocardial infarction (principal); I25.10 Atherosclerotic heart disease of native coronary artery without angina pectoris; I10 Essential (primary) hypertension; E78.5 Hyperlipidemia, unspecified; R73.03 Prediabetes; Z79.82 Long term (current) use of aspirin
CPT/HCPCS: 36140; 36415; 83036; 87641; 93458; A9270; C1760; C1769; C1887; C1894; G0269; J1644; J2003; J2250; J2305; J3010; J7030; J7040

== ENCOUNTER 2024-08-02 08:00 | Outpatient (RCR) | payer BC, SELFPAY ==
[2024-05-06 14:51] VITALS: BP 171/102; PULSE 70; RESP 16; O2SAT 98; BMI 35.2
== END 2024-08-05 15:47 | disposition home or self-care (01) ==
PROVIDERS: PCP Internal Medicine; Visit Provider Internal Medicine
DX: Z95.1 Presence of aortocoronary bypass graft (principal)
CPT/HCPCS: 93798